=== PATIENT | female | born 1975 | race Caucasian/White ===

== ENCOUNTER 2018-06-26 20:43 | Emergency (ER) | payer BC, OTHER ==
[~2018-06-26] VITALS: Ht 167.6 cm; Wt 56.7 kg
[2018-06-26 21:55] VITALS: BP 116/68
== END 2018-06-27 01:42 | disposition home or self-care (01) ==
LOC: ER 20:43
DX: S60.511A Abrasion of right hand, initial encounter (principal); V28.4XXA Motorcycle driver injured in noncollision transport accident in traffic accident, initial encounter; Y93.89 Activity, other specified; Y99.8 Other external cause status; Y92.410 Unspecified street and highway as the place of occurrence of the external cause
CPT/HCPCS: 29125; 73080; 73120